=== PATIENT | male | born 1960 | race Caucasian/White ===

== ENCOUNTER → 2017-04-13 | Outpatient (CLI) | payer OTHER ==
[~2017-04-13] MED LIST: ASPEC81 PO; CRG3125 PO; IMDSR30 PO; LPT40 PO; MULT-506 PO; NXM/40 PO; PLV75 PO
== END | disposition home or self-care (01) ==
LOC: C.PATHSPEC 12:54
PROVIDERS: ATTEND Physician Assistant
DX: L81.4 Other melanin hyperpigmentation (principal)